=== PATIENT | male | born 1950 | race Caucasian/White ===

== ENCOUNTER 2018-01-12 21:25 | Inpatient (IN) | payer OTHER ==
[2018-01-12 21:25] VITALS: BMI 23.3
--- NOTE | 2018-01-12 23:54 | ED PDOC ---
HPI: Back Time Seen by Provider: 01/12/18 23:06 Chief Complaint (Nursing): Back Pain Chief Complaint (Provider): Back pain History Per: Patient History/Exam Limitations: no limitations Onset/Duration Of Symptoms: Persistent Current Symptoms Are (Timing): Still Present Quality Of Discomfort: "Pain" Severity: Severe Previous Symptoms: Chronic Pain Exacerbating Factor(s): Turning, Movement Additional History Per: Patient Additional Complaint(s): 67yo male, with history of diabetes, hypertension and chronic low back pain, presents to ED for evaluation of worsening lower back pain over the past week. Patient previously had surgery with Dr. Patton and follows up with Dr. Pettit. He spoke to his PCP regarding his symptoms and was instructed to present to the ER. Patient denies any trauma, injury, lower extremity weakness/numbness, bowel or bladder dysfunction. PMD: None provided Past Medical History Reviewed: Historical Data, Nursing Documentation, Vital Signs Vital Signs: Last Vital Signs Temp 97.8 F 01/12/18 21:47 Pulse 69 01/12/18 21:47 Resp 18 01/12/18 21:47 BP 139/84 01/12/18 21:47 Pulse Ox 99 01/12/18 21:47 - Medical History PMH: Arthritis (back/neck), HTN, Hypercholesterolemia Denies: HIV, Chronic Kidney Disease - Family History Family History: States: No Known Family Hx - Social History Current smoker - smoking cessation education provided: No Alcohol: None Drugs: Denies - Home Medications Home Medications: Ambulatory Orders Medication Instructions Recorded Insulin Lispro Protamin/Lispro 40 units HS 02/20/16 [Humalog Mix 75-25 Kwikpen] traMADol [Ultram] 50 mg TID 02/20/16 Acetaminophen with Codeine 1 tab PO Q6 PRN 01/13/18 [Tylenol with Codeine #3 Tablet] Azilsartan Medoxomil [Edarbi] 1 tab PO DAILY 01/13/18 Gabapentin [Neurontin] 300 mg PO DAILY 01/13/18 Czhrj-4-Dzse Ethyl Esters [OMEGA 3] 1 tab PO DAILY 01/13/18 cycloSPORINE [Restasis] 1 drop BOTHEYES DAILY 01/13/18 oxyCODONE/Acetaminophen [Percocet 1 tab PO Q4 PRN 01/13/18 5/325 mg Tab] - Allergies Allergies/Adverse Reactions: Allergies Allergy/AdvReac Type Severity Reaction Status Date / Time No Known Allergies Allergy Verified 02/20/16 06:25 Review of Systems ROS Statement: Except As Marked, All Systems Reviewed And Found Negative Genitourinary Male: Negative for: Incontinence Musculoskeletal: Positive for: Back Pain Neurological: Negative for: Weakness, Numbness Physical Exam - Reviewed Nursing Documentation Reviewed: Yes Vital Signs Reviewed: Yes - Physical Exam Appears: Positive for: Uncomfortable Head Exam: Positive for: ATRAUMATIC, NORMAL INSPECTION, NORMOCEPHALIC Skin: Positive for: Normal Color Eye Exam: Positive for: Normal appearance Neck: Positive for: Supple Cardiovascular/Chest: Positive for: Regular Rate, Rhythm Respiratory: Positive for: Normal Breath Sounds Gastrointestinal/Abdominal: Positive for: Normal Exam, Soft. Negative for: Tenderness Back: Positive for: Other (surgical scar noted to lumbar spine, + straight leg raise at 15 degrees, bilaterally) Extremity: Negative for: Deformity Neurologic/Psych: Positive for: Alert, Oriented - Laboratory Results Result Diagrams: 01/13/18 00:21 01/13/18 00:21 - ECG O2 Sat by Pulse Oximetry: 99 (RA) Pulse Ox Interpretation: Normal Medical Decision Making Medical Decision Making: Impression: Acute on chronic lower back pain Plan: -- Labs -- EKG -- CXR -- CT Lumbar Spine w/o contrast Progress: 2336: Case discussed with Dr. Pettit, and patient will be admitted for treatment of intractable lower back pain. Scribe Attestation: Documented by Feli Jules, acting as a scribe for Dhiraj Vyas MD Provider Attestation: All medical record entries made by the Scribe were at my direction and personally dictated by me. I have reviewed the chart and agree that the record accurately reflects my personal performance of the history, physical exam, medical decision making, and the department course for this patient. I have also personally directed, reviewed, and agree with the discharge instructions and disposition. Disposition - Clinical Impression Clinical Impression: Intractable low back pain Discussed With : Chadwick Pettit - Disposition Disposition Time: 23:36 Condition: FAIR - Pt Status Changed To: Hospital Disposition Of: Inpatient - Admit Certification Admit to Inpatient:: After my assessment, the patient will require hospitalization for at least two midnights. This is because of the severity of symptoms shown, intensity of services needed, and/or the medical risk in this patient being treated as an outpatient.
[2018-01-13 00:41] LABS: BASO # 0.1 K/uL (0.0-0.2); EOS # 0.2 K/uL (0.0-0.7); EOS % 2.8 % (0.0-4.0); LYMPH # 3.4 K/uL (1.0-4.3); LYMPH % 51.2 % (20.0-40.0); MEAN CELL VOLUME 83.9 fl (80.0-94.0); MEAN CORPUSCULAR HEMOGLOBIN 28.7 pg (27.0-31.0); MEAN CORPUSCULAR HGB CONC 34.2 g/dL (33.0-37.0); MEAN PLATELET VOLUME 7.8 fl (7.2-11.7); MONO # 0.6 K/uL (0.0-0.8); MONO % 8.4 % (0.0-10.0); NEUT # 2.5 K/uL (1.8-7.0); NEUT % 36.6 % (50.0-75.0); NRBC % 0.1 % (0.0-0.0); RBC 4.17 Mil/uL (4.40-5.90); RED CELL DISTRIBUTION WIDTH 14.3 % (11.5-14.5); WHITE BLOOD COUNT 6.7 K/uL (4.8-10.8)
[2018-01-13 00:48] LABS: ALB/GLOB RATIO 0.9 (1.0-2.1); ALBUMIN 3.7 g/dL (3.5-5.0); CALCIUM 9.2 mg/dL (8.4-10.2)
[2018-01-13 00:55] LABS: PROTHROMBIN TIME 11.1 Seconds (9.8-13.1)
--- NOTE | 2018-01-13 01:48 | CT ---
EXAM: CT Lumbar Spine Without Intravenous Contrast CLINICAL HISTORY: 67 years old, male; Pain; Low back pain; Prior surgery; Surgery date: 6+ months TECHNIQUE: Axial computed tomography images of the lumbar spine without intravenous contrast. All CT scans at this facility use one or more dose reduction techniques, viz.: automated exposure control; ma/kV adjustment per patient size (including targeted exams where dose is matched to indication; i.e. head); or iterative reconstruction technique. 526 images are submitted. Sagittal , axial and coronal MPR reformatted images are submitted in soft tissue and bone windows. COMPARISON: No relevant prior studies available. FINDINGS: Vertebrae: Pars defect on the right at L5. No acute fracture. Discs/spinal canal/neural foramina: T11-T12: Unremarkable. T12-L1: Unremarkable. L1-L2: There is mild disc bulge. L2-L3: There is mild to moderate diffuse disc bulge with bilateral ligamentum flavum hypertrophy. There is narrowing of bilateral lateral recess. These findings are seen on image 50 series 3. L3-L4: There is pedicle screw fixation of L3-L4. There is hardware related artifact at this level. There is narrowing of intervertebral disc space on the right at L3-L4 level and widening on the left on the coronal images 29 series 601 L4-L5: There is left paracentral disc osteophyte herniation with narrowing of left lateral recess and neural foramen. L5-S1: There is broad-based disc bulge. Facet arthritis. There is vacuum degenerative disc disease at L3-L4 L4-L5 and L5-S1 level. Soft tissues: Unremarkable. Kidneys and ureters: Nonobstructive punctate bilateral renal stones. Stomach and bowel: Diverticulosis. IMPRESSION: 1. Degenerative disc disease as described.
[2018-01-13] MEDS ORDERED: Bacitracin Ointment 30 GM TUBE ONE (07:36)
[2018-01-13] MEDS ORDERED: APROTININ/FIBRINOGEN(TISSEEL) ONE (07:37)
[2018-01-13] MEDS ORDERED: Midazolam 2 MG/2 ML VIAL ONE (07:54)
[2018-01-13] MEDS ORDERED: Lidocaine 4% (Laryng-O-Jet) Kit MM ONE (07:54)
[2018-01-13] MEDS ORDERED: Succinylcholine 200 mg/10 ml Inj IV ONE (07:54)
[2018-01-13] MEDS ORDERED: Propofol 10 mg/ml Inj (20 ML) ONE (07:54)
[2018-01-13] MEDS ORDERED: Rocuronium 10 mg/ml (5 ml) ONE (07:54)
[2018-01-13 08:17] LABS: SQUAMOUS EPITHIAL < 1 /hpf (0-5); URINE BILIRUBIN NEGATIVE (NEGATIVE); URINE BLOOD NEGATIVE (NEGATIVE); URINE CLARITY CLEAR (Clear); URINE COLOR YELLOW (YELLOW); URINE GLUCOSE (UA) 50 mg/dL (Normal); URINE HYALINE CAST 0-2 /hpf (0-2); URINE LEUKOCYTE ESTERASE NEG Leu/uL (Negative); URINE PROTEIN 100 mg/dL (NEGATIVE); URINE UROBILINOGEN 0.2-1.0 mg/dL (0.2-1.0)
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
[2018-01-13] MEDS ORDERED: Lactated Ringer's 1,000 ML IV ONE (08:55)
[2018-01-13] MEDS ORDERED: Sodium Chloride 0.9% 500 ML IV ONE ×2 (09:20→10:00)
--- NOTE | 2018-01-13 09:20 | RAD ---
HISTORY: chest pain COMPARISON: No prior. FINDINGS: LUNGS: Multiple scattered calcified granulomata are seen with density similar to that of bone scattered in both lung weiner bilaterally, diffusely. No acute infiltrates identified bilaterally. PLEURA: No significant pleural effusion identified, no pneumothorax apparent. CARDIOVASCULAR: Normal. OSSEOUS STRUCTURES: No significant abnormalities. VISUALIZED UPPER ABDOMEN: Normal. OTHER FINDINGS: Substernal thyroid or ectatic great vessels present is mildly prominent soft tissue at the right paratracheal space. Prior inferior cervical spinal fusion hardware incidentally captured. Right paratracheal stripe does not appear interrupted. IMPRESSION: Multifocal chronic granulomatous changes identified as discussed above comprise of numerous calcified nodular foci. Other etiologies are possible. No acute infiltrates bilaterally. Cardiomediastinal silhouette reflects mildly prominent peritracheal soft tissue particularly toward the right which may reflect reflect substernal thyroid gland or a ectatic great vessel.
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
[2018-01-13] MEDS ORDERED: ePHEDrine 50 mg/ml Inj ONE (09:34)
[2018-01-13] MEDS: Thrombin Topical 5,000 Int Units Spray Kit ONE ×2 (09:38→09:55)
[2018-01-13] MEDS: Absorbable Gelatin Sponge Size 100 ONE ×2 (09:39→09:55)
[2018-01-13] MEDS ORDERED: HEMOSTATIC MATRIX 10 ML DIS.NEEDLE TOP ONE ×2 (09:39→10:00)
[2018-01-13] MEDS ORDERED: Bupivacaine 0.5% Inj(30mL) IJ ONE ×2 (09:40→10:20)
[2018-01-13] MEDS ORDERED: Neostigmine 1:1000 (1 mg/ml) Inj ONE (09:49)
[2018-01-13] MEDS: HYDROmorphone 0.5 mg/0.5 ml ISec IVP PRN ×4 (11:05→13:15)
[2018-01-13] MEDS ORDERED: Oxycodone/Acetaminophen 5/325 mg Tab PO PRN ×2 (11:05→16:05)
[2018-01-13] MEDS: Sodium Chloride 0.9% 1,000 ML IV SCH (11:17)
--- NOTE | 2018-01-13 11:19 | PCM.SURG1 ---
Surgeon's Initial Post Op Note - Surgeon's Notes Surgeon: Ankit Patton MD [employer] Associate: Abelino Morales PA-C Type of Anesthesia: General Endo Anesthesia Administered By: Leland Sarmiento MD Pre-Operative Diagnosis: L4-5 spondylosis Operative Findings: L4-5 spondylosis Post-Operative Diagnosis: as above Operation Performed: L4-5 laminotomy and fusion Specimen/Specimens Removed: none Estimated Blood Loss: EBL {In ML}: 30 Blood Products Given: N/A Drains Used: Mathew Petersen (x1) Post-Op Condition: Good Date of Surgery/Procedure: 01/13/18 Time of Surgery/Procedure: 09:25
--- NOTE | 2018-01-13 11:21 | RAD ---
PROCEDURE: Fluoroscopy up to 1 hr. HISTORY: LUMBAR LAMINECTOMY COMPARISON: None TECHNIQUE: Standard protocol for this study/examination. FINDINGS: Total fluoroscopic time (continuous mode) utilized during the procedure (seconds) 2.8. Total exam DLP: (mGy) 0.78. IMPRESSION: Less than 1 hr fluoroscopic time utilized during performance of the procedure.
[2018-01-13] MEDS: ceFAZolin 1 GM in Sodium Chloride 0.9% 100 ML IVPB SCH (16:49)
--- NOTE | 2018-01-13 17:15 | CARD ---
APPROVED REPORT EKG Measurement Heart [id number] <Conclusion> Sinus bradycardia Otherwise normal ECG
[2018-01-13] MEDS ORDERED: Dextrose 50% SYRINGE Inj (50 ml) IV PRN (22:21)
[2018-01-13] MEDS ORDERED: Glucagon Recombinant 1 mg Inj IM PRN (22:21)
[2018-01-13] MEDS: Insulin Regular 100 units/ml SC SCH (23:00)
--- NOTE | 2018-01-13 23:25 | OP ---
PROCEDURE DATE: 01/13/2018 PREOPERATIVE DIAGNOSES: Lumbar spondylosis and instability. POSTOPERATIVE DIAGNOSES: Lumbar spondylosis and instability. PROCEDURE: L4-L5 lumbar laminectomy, decompression, L4-L5 posterolateral fusion, and fluoroscopy has been used. SURGEON: Ankit Patton MD SUPERVISOR LEAD BURNING: Abelino DESCRIPTION OF PROCEDURE: The patient was brought to the operating room, anesthetized with general endotracheal anesthesia, and placed in a prone position on the Mathew table. Care was taken to protect all the pressure points. Back of the lumbar area thoroughly prepped and draped in same sterile manner after marking for the skin incision for a lumbar laminectomy at L4-5. After prepping and draping the area, skin has been incised. Bleeding skin has been controlled by bipolar automation mechanic. After using a Bovie automation mechanic, paraspinal muscles have been detached and attachments of spinous process and lamina at L4-5. The previously made titanium rods have been exposed at L3-4 where the pedicle screw fixation was done prior to surgery. After exposing and confirming the level of the fluoroscopy by using a Leksell rongeur, the spinous process of L4-L5 have been removed. By using high speed of the lamina for L4-5 to drilled to actual thickness. By using a fine Kerrison punch, thinned out the lamina, medial part of the facets and ligamentum flavum have been removed, decompressing this area. After that, the lateral aspect of the facet joint and transverse process of L4-L5 have been decorticated and demineralized bone placed in the area achieving a posterolateral fusion. After that, hemostasis was best achieved. Mathew drain was placed in the wound and brought out through a separate stab skin incision. Muscles and fascia were closed with 1 Vicryl, subcutaneous tissue with 3-0 Vicryl, and skin has been intradermal 3 Vicryl stitches. The patient tolerated the procedure. After procedure, mobilized to the recovery room in stabilized neurological condition. Ankit Patton MD
[2018-01-14] MEDS: ceFAZolin 1 GM in Sodium Chloride 0.9% 100 ML IVPB SCH (00:28)
[2018-01-14] MEDS: Insulin Regular 100 units/ml SC SCH ×4 (06:59→22:22)
[2018-01-14] MEDS: Sodium Chloride 0.9% 1,000 ML IV SCH (07:26)
[2018-01-14 07:36] LABS: BLOOD UREA NITROGEN 21 mg/dl (9-20); CALCIUM 8.5 mg/dL (8.4-10.2); GFR AFRICAN-AMERICAN > 60; GFR NON-AFRICAN AMERICAN > 60
[2018-01-14 07:47] LABS: HEMOGLOBIN 11.9 g/dL (12.0-18.0); MEAN CELL VOLUME 82.4 fl (80.0-94.0); MEAN CORPUSCULAR HEMOGLOBIN 28.7 pg (27.0-31.0); MEAN CORPUSCULAR HGB CONC 34.8 g/dL (33.0-37.0); RBC 4.14 Mil/uL (4.40-5.90); RED CELL DISTRIBUTION WIDTH 14.1 % (11.5-14.5); WHITE BLOOD COUNT 7.6 K/uL (4.8-10.8)
--- NOTE | 2018-01-14 08:45 | CP.PCM.PN ---
Objective - Vital Signs/Intake and Output Vital Signs (last 24 hours): Temp Pulse Resp BP Pulse Ox 98.9 F 74 20 158/74 H 95 01/14/18 08:02 01/14/18 08:02 01/14/18 08:02 01/14/18 08:02 01/14/18 08:02 Intake and Output: 01/14/18 01/14/18 06:59 18:59 Intake Total 300 Output Total 40 Balance 260 - Medications Medications: Current Medications Dextrose (Dextrose 50% Inj) 0 ml IV STAT PRN; Protocol PRN Reason: Hypoglycemia Protocol Dextrose (Glutose 15) 0 gm PO ONCE PRN; Protocol PRN Reason: Hypoglycemia Protocol Docusate Sodium (Colace) 100 mg PO BID [facility] Last Admin: 01/14/18 08:44 Dose: 100 mg Glucagon (Glucagen Diagnostic Kit) 0 mg IM STAT PRN; Protocol PRN Reason: Hypoglycemia Protocol Sodium Chloride (Sodium Chloride 0.9%) 1,000 mls @ 100 mls/hr IV .Q10H [facility] Stop: 01/14/18 11:07 Last Admin: 01/14/18 07:26 Dose: Not Given Insulin Human Regular (Humulin R) 0 units SC ACHS [place] PRN Reason: Protocol Last Admin: 01/14/18 06:59 Dose: Not Given Morphine Sulfate (Morphine) 2 mg IVP Q4 PRN PRN Reason: Pain, severe (8-10) Last Admin: 01/14/18 03:51 Dose: 2 mg Ondansetron HCl (Zofran Inj) 4 mg IVP ONCE PRN PRN Reason: Nausea/Vomiting Oxycodone/Acetaminophen (Percocet 5/325 Mg Tab) 2 tab PO Q4 PRN PRN Reason: Pain, moderate (4-7) Stop: 01/16/18 16:06 - Labs Labs: 01/14/18 05:30 01/14/18 05:30 PT 11.1 Seconds (9.8-13.1) 01/13/18 00:21 INR 1.0 (0.9-1.2) 01/13/18 00:21 APTT 33.0 Seconds (25.6-37.1) 01/13/18 00:21
--- NOTE | 2018-01-14 08:58 | CP.PCM.PN ---
Subjective - Date & Time of Evaluation Date of Evaluation: 01/14/18 Time of Evaluation: 07:45 - Subjective Subjective: Patient seen and examined at bedside. Pain not controlled with pain medication. Tolerating diet. Has not worked with PT yet. No acute events overnight. Objective - Vital Signs/Intake and Output Vital Signs (last 24 hours): Temp Pulse Resp BP Pulse Ox 98.9 F 74 20 158/74 H 95 01/14/18 08:02 01/14/18 08:02 01/14/18 08:02 01/14/18 08:02 01/14/18 08:02 Intake and Output: 01/14/18 01/14/18 06:59 18:59 Intake Total 300 Output Total 40 Balance 260 - Medications Medications: Current Medications Dextrose (Dextrose 50% Inj) 0 ml IV STAT PRN; Protocol PRN Reason: Hypoglycemia Protocol Dextrose (Glutose 15) 0 gm PO ONCE PRN; Protocol PRN Reason: Hypoglycemia Protocol Docusate Sodium (Colace) 100 mg PO BID [place] Last Admin: 01/14/18 08:44 Dose: 100 mg Glucagon (Glucagen Diagnostic Kit) 0 mg IM STAT PRN; Protocol PRN Reason: Hypoglycemia Protocol Sodium Chloride (Sodium Chloride 0.9%) 1,000 mls @ 100 mls/hr IV .Q10H [facility] Stop: 01/14/18 11:07 Last Admin: 01/14/18 07:26 Dose: Not Given Insulin Human Regular (Humulin R) 0 units SC ACHS [facility] PRN Reason: Protocol Last Admin: 01/14/18 06:59 Dose: Not Given Morphine Sulfate (Morphine) 2 mg IVP Q4 PRN PRN Reason: Pain, severe (8-10) Last Admin: 01/14/18 03:51 Dose: 2 mg Ondansetron HCl (Zofran Inj) 4 mg IVP ONCE PRN PRN Reason: Nausea/Vomiting Oxycodone/Acetaminophen (Percocet 5/325 Mg Tab) 2 tab PO Q4 PRN PRN Reason: Pain, moderate (4-7) Stop: 01/16/18 16:06 - Labs Labs: 01/14/18 05:30 01/14/18 05:30 PT 11.1 Seconds (9.8-13.1) 01/13/18 00:21 INR 1.0 (0.9-1.2) 01/13/18 00:21 APTT 33.0 Seconds (25.6-37.1) 01/13/18 00:21 - Back Exam Additional comments: Lumbar: Dressing intact with minimal bloody drainage from drain site. HAO drain intact with mild bloody drainage. Mild swelling and tenderness diffuse 2nd to surgery sensation intact SP/DP/TN motor intact EHL/FHL/TA/G distal pulses intact Assessment and Plan (1) Intractable low back pain Assessment & Plan: POD# s/p L4-5 laminotomy and fusion -will alter pain medications -monitor drain output, will remove tomorrow -PT/OT WBAT -discharge planning for d/c tomorrow -case and plan d/w Dr. Patton in agreement Status: Acute
[2018-01-14] MEDS ORDERED: oxyCODONE 10 mg Immediate Release Tab PO PRN (09:39)
[2018-01-14 23:36] VITALS: RESP 20
[2018-01-15 06:21] VITALS: TEMP 98.8
[2018-01-15 06:55] LABS: HEMOGLOBIN 11.5 g/dL (12.0-18.0); MEAN CELL VOLUME 83.8 fl (80.0-94.0); MEAN CORPUSCULAR HGB CONC 33.4 g/dL (33.0-37.0); RBC 4.09 Mil/uL (4.40-5.90); RED CELL DISTRIBUTION WIDTH 14.3 % (11.5-14.5); WHITE BLOOD COUNT 7.7 K/uL (4.8-10.8)
[2018-01-15 06:59] LABS: BLOOD UREA NITROGEN 18 mg/dl (9-20); CALCIUM 8.7 mg/dL (8.4-10.2); GFR AFRICAN-AMERICAN > 60; GFR NON-AFRICAN AMERICAN > 60
[2018-01-15 07:47] VITALS: PULSE 66; O2SAT 96
[2018-01-15] MEDS: Insulin Regular 100 units/ml SC SCH ×2 (07:52→10:47)
--- NOTE | 2018-01-15 09:04 | CP.PCM.PN ---
Subjective - Date & Time of Evaluation Date of Evaluation: 01/15/18 Time of Evaluation: 09:02 - Subjective Subjective: Patient states he has a lot of pain in his back, but a little better today. Denies CP/SOB/dizziness/numbness/tingling. Objective - Vital Signs/Intake and Output Vital Signs (last 24 hours): Temp Pulse Resp BP Pulse Ox 98.8 F 66 20 172/88 H 96 01/15/18 07:46 01/15/18 07:46 01/15/18 07:46 01/15/18 07:46 01/15/18 07:46 - Medications Medications: Current Medications Acetaminophen (Tylenol 325mg Tab) 650 mg PO Q4 [facility] Last Admin: 01/15/18 01:40 Dose: Not Given Dextrose (Dextrose 50% Inj) 0 ml IV STAT PRN; Protocol PRN Reason: Hypoglycemia Protocol Dextrose (Glutose 15) 0 gm PO ONCE PRN; Protocol PRN Reason: Hypoglycemia Protocol Docusate Sodium (Colace) 100 mg PO BID [facility] Last Admin: 01/14/18 17:02 Dose: 100 mg Glucagon (Glucagen Diagnostic Kit) 0 mg IM STAT PRN; Protocol PRN Reason: Hypoglycemia Protocol Insulin Human Regular (Humulin R) 0 units SC ACHS [facility] PRN Reason: Protocol Last Admin: 01/15/18 07:52 Dose: 2 units Losartan Potassium (Cozaar) 50 mg PO DAILY [facility] Morphine Sulfate (Morphine) 2 mg IVP Q4 PRN PRN Reason: Pain, severe (8-10) Last Admin: 01/15/18 01:39 Dose: 2 mg Ondansetron HCl (Zofran Inj) 4 mg IVP ONCE PRN PRN Reason: Nausea/Vomiting Oxycodone HCl (Oxycodone Immediate Release Tab) 10 mg PO Q4 PRN PRN Reason: Pain, moderate (4-7) - Labs Labs: 01/15/18 05:45 01/15/18 05:40 PT 11.1 Seconds (9.8-13.1) 01/13/18 00:21 INR 1.0 (0.9-1.2) 01/13/18 00:21 APTT 33.0 Seconds (25.6-37.1) 01/13/18 00:21 - Back Exam Additional comments: +ROM ankle/toes B sensation intact HAO pulled, new dressing applied Assessment and Plan (1) Lumbar spondylosis Assessment & Plan: cont PT/OT VTE proph d/c planning, stable for d/c per neurosurg d/w Dr. adair, agrees with above Status: Acute
[2018-01-15 12:37] VITALS: BP 136/75
--- NOTE | 2018-01-15 14:13 | CP.PCM.DIS ---
Provider - Provider Date of Admission: 01/12/18 23:35 Attending physician: Chadwick Pettit MD Time Spent in preparation of Discharge (in minutes): 15 Diagnosis - Discharge Diagnosis (1) Intractable low back pain Status: Acute (2) Herniated intervertebral disc of lumbar spine Status: Acute (3) Renal insufficiency Status: Chronic (4) Diabetes mellitus type 2 in nonobese Status: Chronic (5) Hypertension Status: Chronic (6) Liver cirrhosis Status: Chronic Hospital Course - Lab Results Lab Results: Most Recent Lab Values WBC 7.7 K/uL (4.8-10.8) 01/15/18 05:45 RBC 4.09 Mil/uL (4.40-5.90) L 01/15/18 05:45 Hgb 11.5 g/dL (12.0-18.0) L 01/15/18 05:45 Hct 34.3 % (35.0-51.0) L 01/15/18 05:45 MCV 83.8 fl (80.0-94.0) 01/15/18 05:45 MCH 28.0 pg (27.0-31.0) 01/15/18 05:45 MCHC 33.4 g/dL (33.0-37.0) 01/15/18 05:45 RDW 14.3 % (11.5-14.5) 01/15/18 05:45 Plt Count 173 K/uL (130-400) 01/15/18 05:45 MPV 7.8 fl (7.2-11.7) 01/13/18 00:21 Neut % (Auto) 36.6 % (50.0-75.0) L 01/13/18 00:21 Lymph % (Auto) 51.2 % (20.0-40.0) H 01/13/18 00:21 [place] % (Auto) 8.4 % (0.0-10.0) 01/13/18 00:21 Eos % (Auto) 2.8 % (0.0-4.0) 01/13/18 00:21 Baso % (Auto) 1.0 % (0.0-2.0) 01/13/18 00:21 Neut # (Auto) 2.5 K/uL (1.8-7.0) 01/13/18 00:21 Lymph # (Auto) 3.4 K/uL (1.0-4.3) 01/13/18 00:21 [place] # (Auto) 0.6 K/uL (0.0-0.8) 01/13/18 00:21 Eos # (Auto) 0.2 K/uL (0.0-0.7) 01/13/18 00:21 Baso # (Auto) 0.1 K/uL (0.0-0.2) 01/13/18 00:21 PT 11.1 Seconds (9.8-13.1) 01/13/18 00:21 INR 1.0 (0.9-1.2) 01/13/18 00:21 APTT 33.0 Seconds (25.6-37.1) 01/13/18 00:21 Sodium 140 mmol/l (132-148) 01/15/18 05:40 Potassium 3.8 MMOL/L (3.6-5.0) 01/15/18 05:40 Chloride 102 mmol/L (98-107) 01/15/18 05:40 Carbon Dioxide 29 mmol/L (22-30) 01/15/18 05:40 Anion Gap 13 (10-20) 01/15/18 05:40 BUN 18 mg/dl (9-20) 01/15/18 05:40 Creatinine 1.0 mg/dl (0.8-1.5) 01/15/18 05:40 Est GFR ( Amer) > 60 01/15/18 05:40 Est GFR (Non-Af Amer) > 60 01/15/18 05:40 POC Glucose (mg/dL) 189 mg/dL (65-110) H 01/15/18 10:46 Random Glucose 147 mg/dL (75-110) H 01/15/18 05:40 Calcium 8.7 mg/dL (8.4-10.2) 01/15/18 05:40 Total Bilirubin 0.3 mg/dl (0.2-1.3) 01/13/18 00:21 AST 30 U/L (17-59) 01/13/18 00:21 ALT 38 U/L (21-72) 01/13/18 00:21 Alkaline Phosphatase 92 U/L (38-126) 01/13/18 00:21 Total Protein 7.7 G/DL (6.3-8.2) 01/13/18 00:21 Albumin 3.7 g/dL (3.5-5.0) 01/13/18 00:21 Globulin 4.0 gm/dL (2.2-3.9) H 01/13/18 00:21 Albumin/Globulin Ratio 0.9 (1.0-2.1) L 01/13/18 00:21 Urine Color Yellow (YELLOW) 01/13/18 08:09 Urine Clarity Clear (Clear) 01/13/18 08:09 Urine pH 6.0 (5.0-8.0) 01/13/18 08:09 Ur Specific [place] 1.012 (1.003-1.030) 01/13/18 08:09 Urine Protein 100 mg/dL (NEGATIVE) 01/13/18 08:09 Urine Glucose (UA) 50 mg/dL (Normal) 01/13/18 08:09 Urine Ketones Negative mg/dL (NEGATIVE) 01/13/18 08:09 Urine Blood Negative (NEGATIVE) 01/13/18 08:09 Urine Nitrate Negative (NEGATIVE) 01/13/18 08:09 Urine Bilirubin Negative (NEGATIVE) 01/13/18 08:09 Urine Urobilinogen 0.2-1.0 mg/dL (0.2-1.0) 01/13/18 08:09 Ur Leukocyte Esterase Neg [place]/uL (Negative) 01/13/18 08:09 Urine RBC (Auto) 3 /hpf (0-3) 01/13/18 08:09 Urine Microscopic WBC 1 /hpf (0-5) 01/13/18 08:09 Ur Squamous Epith Cells < 1 /hpf (0-5) 01/13/18 08:09 Hyaline Casts 0-2 /hpf (0-2) 01/13/18 08:09 - Hospital Course Hospital Course: 67 y/o man w/ pmh of HTN, liver cirrhosis, treated Hep C, previous L3-L4 laminectomy admitted for intractable back pain. Patient started having pain again on the left lower extremity radiating from the lower back. MRI and CT LS spine showed degenerative disc LS worst on the L4-L5 area with hernited osteophyte Patient failed conservative outpatient treatment. Patient is s/p L4 -L5 laminotomy and fusion POD 2. Patient reports improvement w/ pain and movement. the Patient has been seen, examined, and deemed medically fit for discharge to subacute rehabilitation facility for further physical therapy. Discharge Exam - Head Exam Head Exam: ATRAUMATIC, NORMAL INSPECTION, NORMOCEPHALIC - Eye Exam Eye Exam: Normal appearance - ENT Exam ENT Exam: Mucous Membranes Moist - Neck Exam Neck exam: Full Rom - Respiratory Exam Respiratory Exam: Clear to PA & Lateral. absent: Accessory Muscle Use, Decreased Breath Sounds, Rales, Rhonchi, Wheezes, Respiratory Distress - Cardiovascular Exam Cardiovascular Exam: REGULAR RHYTHM, RRR. absent: Bradycardia, Tachycardia, Diastolic murmur, Rubs, Systolic Murmur - GI/Abdominal Exam GI & Abdominal Exam: Normal Bowel Sounds, Soft. absent: Distended, Tenderness - Extremities Exam Extremities exam: normal inspection - Neurological Exam Neurological exam: Alert, Normal Gait (requires assistance), Oriented x3 - Skin Skin Exam: Dry, Intact, Normal Color, Warm Discharge Plan - Follow Up Plan Condition: FAIR Disposition: HOME/ ROUTINE Instructions: Laminectomy (DC)
== END 2018-01-15 16:10 | DRG 460 ==
LOC: H.ER 21:25 → H.ERHOLD 23:35 → H.MEDSURG1 01-13 03:23
PROVIDERS: ADMIT Family Medicine; ATTEND Family Medicine
PROC: 0SG00K1 Fusion of Lumbar Vertebral Joint with Nonautologous Tissue Substitute, Posterior Approach, Posterior Column, Open Approach (ICD-10-PCS; principal; 2018-01-13 09:45)
DX: M47.816 Spondylosis without myelopathy or radiculopathy, lumbar region (principal); I10 Essential (primary) hypertension; E78.00 Pure hypercholesterolemia, unspecified; E11.9 Type 2 diabetes mellitus without complications; N28.9 Disorder of kidney and ureter, unspecified; K74.60 Unspecified cirrhosis of liver; Z86.19 Personal history of other infectious and parasitic diseases; M51.26 Other intervertebral disc displacement, lumbar region; M51.37 Other intervertebral disc degeneration, lumbosacral region